=== PATIENT | male | born 1985 | race Caucasian/White ===

== ENCOUNTER 2016-11-09 20:19 | Emergency (ER) | payer OTHER | END 2016-11-09 22:35 | disposition home or self-care (01) | LOC: ER1 20:19 | DX: S61.452A Open bite of left hand, initial encounter (principal); S41.151A Open bite of right upper arm, initial encounter; F17.290 Nicotine dependence, other tobacco product, uncomplicated; Z23 Encounter for immunization; W54.0XXA Bitten by dog, initial encounter | CPT/HCPCS: 90471; 90714; 99283 ==

== ENCOUNTER 2016-11-16 13:48 | Emergency (ER) | payer OTHER | END 2016-11-16 15:05 | disposition home or self-care (01) | LOC: ER1 13:48 | DX: S16.1XXA Strain of muscle, fascia and tendon at neck level, initial encounter (principal); S40.012A Contusion of left shoulder, initial encounter; R03.0 Elevated blood-pressure reading, without diagnosis of hypertension; V43.52XA Car driver injured in collision with other type car in traffic accident, initial encounter; Y93.89 Activity, other specified; Y92.410 Unspecified street and highway as the place of occurrence of the external cause | CPT/HCPCS: 71020; 72125; 72128; 99284 ==

== ENCOUNTER 2020-12-29 17:14 | Emergency (ER) | payer OTHER, BC ==
[2020-12-29] MEDS ORDERED: HYDROCODON-ACE1 EAC4 PO (20:19)
== END 2020-12-29 20:30 | disposition home or self-care (01) ==
LOC: ER1 17:14
DX: S52.511A Displaced fracture of right radial styloid process, initial encounter for closed fracture (principal); S80.211A Abrasion, right knee, initial encounter; S60.812A Abrasion of left wrist, initial encounter; K21.9 Gastro-esophageal reflux disease without esophagitis; F17.220 Nicotine dependence, chewing tobacco, uncomplicated; Z79.899 Other long term (current) drug therapy; V49.40XA Driver injured in collision with unspecified motor vehicles in traffic accident, initial encounter; Y92.410 Unspecified street and highway as the place of occurrence of the external cause
CPT/HCPCS: 29125; 70450; 72125; 73110; 73564; 99284